=== PATIENT | male | born 1965 | race Caucasian/White ===

== ENCOUNTER 2018-05-28 06:56 | Day surgery (SDC) | payer OTHER ==
[2018-05-27 09:45] VITALS: Ht 185.4 cm; Wt 81.4 kg
[2018-05-28] VITALS (16 sets, daily range): BP systolic 131–175; BP diastolic 66–74; PULSE 78–103; RESP 16–21
[~2018-05-28] VITALS: Ht 185.4 cm; Wt 81.4 kg
--- NOTE | 2018-05-28 06:08 | HPN ---
Date/Time of Note Date/Time of Note DATE: 05/28/18 TIME: 06:08 Interval H&P Admission Note Pt. seen H&P reviewed: No system changes FLORI DOS SANTOS MD May 28, 2018 06:08
--- NOTE | 2018-05-28 06:11 | OPR ---
Date/Time of Note Date/Time of Note DATE: 05/28/18 TIME: 06:08 Operative Report Procedure Date: May 28, 2018 Preoperative Diagnosis Right shoulder AC joint disruption with clavicle fracture Postoperative Diagnosis 1. Right should acromioclavicular joint disruption (type III) 2. Right shoulder distal clavicular fracture Operation/Procedure Performed 1. Right shoulder open acromioclavicular joint reconstruction with allograft tibialis anterior tendon 2. Right shoulder injection of PRP Surgeon see signature line Tile Decorator Santos Mc PA-C Anesthesia Type: general Estimated Blood Loss: 50 - 100 ml's Transfusion none Specimen None Grafts/Implants See op note Complications none Pt Condition Post Procedure: stable Disposition: PACU Procedure Description HEMODIALYSIS LAB TECHNICIAN SURGEON: Santos Mc PA-C was asked to be present for this case at my request. Assistance was necessary as a result of the highly technical nature of this operation. When performing an open total shoulder replacement, it is critical to have a trained it administrative assistant who is an expert in handling the extremity and assisting the surgeon in tasks such as suture manage ment and knot-tying techniques as well as implants. This assistance cannot be performed by a medical imaging technician, as it is considered an integral part of the procedure and the it administrative assistant should be compensated for their time. PROCEDURE IN DETAIL: Following the administration of general anesthesia supplemented with a peripheral nerve block for postoperative pain control, the patient was examined under anesthesia. Examination of the right shoulder revealed the very significant deformity of the very high riding clavicle with crepitus. The right upper extremity was then prepped in the antecubital fossa and 60 cc of blood were aspirated from the antecubital vein. The blood was then transferred to the textile machinery sales representative from the company to prepare the PRP solution. The patient was then placed in the beach chair position. Sterile prep and drape was then undertaken. An saber type incision was then carried through the interval exposing the deltotrapezial fascia and the clavicular deformity. At the deltotrapezial fascia was then incised from medial to lateral elevating the clavicle and exposing the fracture fragments. The very distal clavicle was exposed and the intra-articular portion had significant comminution. In addition, the more medial portion of the larger clavicular fragment was essentially healed in a posteriorly angulated direction of about 60 degrees. There is significant distortion of the original anatomy. The intra-articular portion was then removed and a portion of the undersurface was then mobilized to include a portion of the coracoclavicular ligaments. The allograft was then prepared. Specifically, this was a tibialis anterior allograft that was cut to a 10 mm thick graft. This was prepared on the 2 ends with #2 permanent sutures. A #5 permanent suture was also passed along with the graft around the coracoid process. The base of the coracoid was then identified and cleared of soft tissue. A suture was passed from medial to lateral and then subsequently the graft was passed from lateral to medial with a 2 and above the coracoid. Two 7 mm drill holes were then created over the distal aspect of the clavicle, where the coracoclavicular ligaments originally were noted. The graft along with the #5 suture was then passed. Prior to this, it was noted that as a result of the severe deformity and posterior angulation mentioned above about 60 degrees, a portion of the posterior clavicle was excised. Once the graft was passed and tensioned, the arm was then elevated and the coracoclavicular interval was narrowed. The graft was then sutured to itself with an and subsequently the more anterior medial limb was passed underneath the clavicle once again and tied to itself once again in order to create further stability. The #5 suture was also tied solidly. A anatomic adduction was noted with good color linearity between the acromion and the medial clavicle. The deltotrapezial fascia which had been incised, was then closed using interrupted and running #2 sutures. There were several areas of heterotopic o ssification which were noted in this area and these were left in place in order to increase the stability of the configuration. The wound was then thoroughly irrigated, the deep tissues were approximated using #1 suture followed by closure of the deep layer using 2-0 Monocryl. The skin was closed using 4-0 Monocryl suture, and a Prenio dressing. An Ultrasling was then applied. The patient was awakened and transported to the recovery room in stable condition. Estimated blood loss for this procedure was 75 cc. Radiographs will be obtained in the recovery room. FLORI DOS SANTOS MD May 28, 2018 06:11
[2018-05-28] MEDS ORDERED: CEFAZOLIN 2 GM/50 ML (PMX) 50 ML IVPB ONE (08:00)
[2018-05-28] MEDS ORDERED: DEXAMETHASONE 1 MG TAB PO ONE (08:00)
[2018-05-28] MEDS ORDERED: TRANEXAMIC ACID 1GM/100ML(PMX) 100 ML IVPB ONE (08:00)
[2018-05-28] MEDS ORDERED: GABAPENTIN 300 MG CAP PO ONE (08:00)
[2018-05-28] MEDS ORDERED: PROPOFOL 20 ML ONE (08:01)
[2018-05-28] MEDS ORDERED: CEFAZOLIN 1 GM INJ ONE (08:01)
[2018-05-28] MEDS ORDERED: ROCURONIUM 50 MG INJ ONE (08:01)
[2018-05-28] MEDS ORDERED: MIDAZOLAM 1 MG/ML 2 ML INJ ONE (08:01)
[2018-05-28] MEDS ORDERED: ROPIVACAINE 0.5 % 30 ML VIAL ONE (08:01)
[2018-05-28] MEDS ORDERED: NEOSTIGMINE 3 MG/3 ML SYRINGE ONE (08:01)
[2018-05-28] MEDS ORDERED: ONDANSETRON 4 MG INJ ONE (08:01)
[2018-05-28] MEDS ORDERED: FENTAnyl 50 MCG/ML VIAL ONE ×2 (08:01→10:27)
[2018-05-28] MEDS ORDERED: GLYCOPYRROLATE 0.4 MG INJ ONE (08:01)
[2018-05-28] MEDS ORDERED: DEXAMETHASONE 4 MG/ML 5 ML INJ ONE (08:01)
[2018-05-28] MEDS ORDERED: ACET-141 PO (08:07)
[2018-05-28] MEDS ORDERED: THROMBIN (BOVINE) 5,000 UNIT VIAL TP ONE ×2 (09:02→10:04)
[2018-05-28] MEDS ORDERED: BUPIVACAINE 0.5%/EPI (SDV) 30 ML INJ ONE (09:02)
[2018-05-28] MEDS ORDERED: CA CHLORIDE (GM) 10% 10 ML INJ ONE ×2 (09:02→10:04)
[2018-05-28] MEDS ORDERED: POLYMYXIN/BACITRACIN 1L IRRIG ONE (09:02)
--- NOTE | 2018-05-28 09:11 | PREAC ---
Date/Time of Note Date/Time of Note DATE: 05/28/18 TIME: 09:09 Anesthesia Eval and Record Evaluation Time Pre-Procedure Interview DATE: 05/28/18 TIME: 09:09 Age 53 Sex male NPO: 8 hrs Preoperative diagnosis RIGHT SHOULDER CLAVICULAR FRACTURE Planned procedure RIGHT OPEN ACROMIOCLAVICULAR JOINT RECONSTRUCTION Past Medical History Past Medical History: Includes Pulm: COPD Surgery & Anesthesia Issues No known issue Meds Anticoagulation: No Beta Jez within 24 hr: No Reason Beta Jez not given: Pt. not on B-Jez Reported Medications Acetaminophen* (Acetaminophen*) 500 MG Extra Strength Tablet, 500 MG PO Q4H PRN for PAIN AND OR ELEVATED TEMP, TAB 05/28/18 Current Medications Bupivacaine HCl/ Morphine Sulfate/ Epinephrine/ Ketorolac Tromethamine/ Clon idine/Sodium Chloride/ Vancomycin HCl INTRA-OP IRR ; Start 05/28/18 at 09:30; Stop 05/28/18 at 12:00 Meds reviewed: Yes Allergies Coded Allergies: No Known Allergy (Unverified , 05/27/18) Allergies Reviewed: Yes Labs/Studies Labs Reviewed: Reviewed by anesthesiologist test: N/A Studies: ECG (NL), CXR (COPD) Pre-procedure Exam Last vitals Vital Signs Date Temp Pulse Resp B/P (MAP) Pulse Ox O2 O2 Flow FiO2 Time Delivery Rate 05/28/18 98.6 78 16 131/71 97 Room Air 08:04 (91) Airway: Adequate mouth opening, Adequate thyromental dist Mallampati: Mallampati II Teeth: Normal Lung: Normal Heart: Normal ASA Physical Status ASA physical status: 3 Emergency: None Planned Anesthetic General/MAC: ETT Nerve block: Brachial plexus (right) Pre-operative Attestations Prior to commencing anesthesia and surgery, the patient was re-evaluated, there was verification of: *The patient's identity *The results of appropriate recent lab work and preoperative vital signs *The above evaluation not changing prior to induction *Anesthetic plan, risk benefits, alternative and complications discussed with patient/family; questions answered; patient/family understands, accepts and wishes to proceed. Hunter Waters M.D. May 28, 2018 09:11
[2018-05-28] MEDS ORDERED: HYDROmorphONE 1 MG/5 ML IV SYRINGE IV PRN ×3 (09:30)
[2018-05-28] MEDS ORDERED: ONDANSETRON 4 MG INJ IV PRN (09:30)
[2018-05-28] MEDS ORDERED: MIDAZOLAM 1 MG/ML 2 ML INJ IV PRN (09:30)
[2018-05-28] MEDS ORDERED: OXYCODONE/ACETAMINOPHEN (5/325) TAB PO PRN ×2 (09:30)
[2018-05-28] MEDS ORDERED: TRIMETHOBENZAMIDE 100 MG/ML VIAL IM PRN (09:30)
[2018-05-28] MEDS ORDERED: DIPHENHYDRAMINE 50 MG INJ IV PRN (09:30)
[2018-05-28] MEDS ORDERED: EPHEDrine SULFATE 50 MG/5 ML SYG IV PRN (09:30)
[2018-05-28] MEDS ORDERED: FENTAnyl 50 MCG/ML VIAL IV PRN ×3 (09:30)
[2018-05-28] MEDS ORDERED: ALBUTEROL 0.083% (NEB) 2.5 MG/3 ML AMP HHN PRN (09:30)
[2018-05-28] MEDS ORDERED: IPRATROPIUM (NEB) 0.5 MG/2.5 ML AMP HHN PRN (09:30)
[2018-05-28] MEDS ORDERED: MEPERIDINE 25 MG INJ IV PRN (09:30)
[2018-05-28] MEDS ORDERED: hydrALAzine 20 MG INJ IV PRN (09:30)
[2018-05-28] MEDS ORDERED: LABETALOL HCL 20MG INJ IV PRN (09:30)
[2018-05-28] MEDS ORDERED: BUPIVACAINE 0.5% (SDV) 30 ML, morphine SULFATE (PF) 8 MG, EPINEPHrine 0.3 MG, KETOROLAC... IRR SCH ×7 (09:30)
[2018-05-28] MEDS ORDERED: TRANEXAMIC ACID 1GM/100ML(PMX) 200 ML ONE (09:37)
--- NOTE | 2018-05-28 10:55 | PDOCDIS ---
Discharge Instructions DIAGNOSIS Discharge Diagnosis Acromioclavicular joint dislocation with clavicle fracture CONDITION [id number] Patient Condition: [id number] Good HOME CARE INSTRUCTIONS: [id number] Diet Instructions: [id number] Regular ACTIVITY: [id number] Activity Restrictions: [id number] Slowly Increase Activity Keep Limb Elevated [id number] Bathing Restrictions: [id number] Shower FOLLOW UP/APPOINTMENTS Follow-up Plan 2 weeks in the office SCHOOL/WORK RELEASE May return to School/Work with: With Restrictions School/Work Release Comment: 5 pound tabletop usage. Sling on at all times FLORI DOS SANTOS MD May 28, 2018 10:55
--- NOTE | 2018-05-28 12:14 | PAC ---
Date/Time of Note Date/Time of Note DATE: 05/28/18 TIME: 12:13 Post-Anesthesia Notes Post-Anesthesia Note Last documented vital signs Vital Signs Date Temp Pulse Resp B/P (MAP) Pulse Ox O2 O2 Flow FiO2 Time Delivery Rate 05/28/18 98.6 78 16 131/71 97 Room Air 08:04 (91) Activity: WNL Respiratory function: WNL Cardiovascular function: WNL Mental status: Baseline Pain reasonably controlled: Yes Hydration appropriate: Yes Nausea/Vomiting absent: Yes Hunter Waters M.D. May 28, 2018 12:14
== END 2018-05-28 13:24 | disposition home or self-care (01) ==
LOC: SDS 06:56
PROVIDERS: ATTEND Orthopaedic Surgery
DX: S42.031D Displaced fracture of lateral end of right clavicle, subsequent encounter for fracture with routine healing (principal); S43.101D Unspecified dislocation of right acromioclavicular joint, subsequent encounter; W11.XXXD Fall on and from ladder, subsequent encounter; J44.9 Chronic obstructive pulmonary disease, unspecified
CPT/HCPCS: 23552; 86999; J0171; J0690; J0735; J1100; J1885; J2175; J2250; J2274; J2405; J2710; J2795; J3010; J3370; Z7512; Z7610